=== PATIENT | male | born 2000 ===

== ENCOUNTER 2020-02-27 02:21 | Emergency (ER) | payer OTHER ==
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
== END 2020-02-27 05:15 ==
LOC: ER 02:21
DX: I46.9 Cardiac arrest, cause unspecified (principal); S21.209A Unspecified open wound of unspecified back wall of thorax without penetration into thoracic cavity, initial encounter; S81.802A Unspecified open wound, left lower leg, initial encounter; S81.801A Unspecified open wound, right lower leg, initial encounter; S41.101A Unspecified open wound of right upper arm, initial encounter; W34.00XA Accidental discharge from unspecified firearms or gun, initial encounter; Y93.9 Activity, unspecified; Y92.89 Other specified places as the place of occurrence of the external cause
CPT/HCPCS: 92950; 99291; 99292